=== PATIENT | female | born 1965 | race Caucasian/White ===

== ENCOUNTER 2017-09-14 21:12 | Inpatient (IN) | payer OTHER ==
[~2017-09-14] VITALS: Ht 157.5 cm; Wt 167.8 kg
[2017-09-14 22:23] LABS: BASOPHIL % 0.7 % (0-2); PLATELET COUNT 210 x10^3mcL (130-400); RED CELL DISTRIBUTION WIDTH 13.8 % (11.5-14.5)
[2017-09-14 22:31] LABS: CALCIUM 9.6 mg/dL (8.5-10.1); CHLORIDE SERUM 104 mmol/L (98-107); GFR1 > 60 mL/min; GLUCOSE SERUM 135 mg/dL (74-106); POTASSIUM SERUM 3.8 mmol/L (3.5-5.1); SODIUM SERUM 142 mmol/L (136-145)
[2017-09-14 22:35] LABS: ALBUMIN 3.7 g/dL (3.4-5.0); ALKALINE PHOSPHATASE 155 U/L (46-116); ALT/SGPT 175 U/L (14-59); AST/SGOT 199 U/L (15-37); BILIRUBIN TOTAL 0.75 mg/dL (0.20-1.00); TOTAL PROTEIN, SERUM 7.7 g/dL (6.4-8.2)
[2017-09-15] MEDS ORDERED: NOR10T (00:50)
[2017-09-15] MEDS ORDERED: ENALAPRIL MALEA20 MG PO (00:50)
[2017-09-15] MEDS ORDERED: HYDROCHLOROTHIA50 MG PO (00:50)
[2017-09-15 01:05] LABS: T3 TOTAL 1.77 ng/mL
[2017-09-15 01:06] LABS: MAGNESIUM 2.1 mg/dL (1.8-2.4); PHOSPHOROUS 4.6 mg/dL (2.5-4.9)
[2017-09-15 01:14] LABS: CHOLESTEROL/HDL RATIO 2.5
[2017-09-15 01:26] LABS: FREE T4 1.33 ng/dL (0.76-1.46); FREE THYROXINE INDEX 3.7 ug/dL (1.4-4.5); T4(THYROXINE) 12.4 ug/dL (4.7-13.3)
[2017-09-15 03:55] VITALS: BP 176/95
[2017-09-15 04:13] VITALS: BP 152/88
[2017-09-15 08:39] VITALS: BP 158/86
[2017-09-15 13:39] VITALS: BP 146/93
[2017-09-15 17:23] VITALS: BP 198/123
[2017-09-15 21:18] VITALS: BP 150/94
[2017-09-16 00:17] LABS: microscopic required? YES; urine erythrocyte 1+ (NEGATIVE)
[2017-09-16 00:39] LABS: AMPHETAMINE QUAL UR NONE DETECTED (See below)
[2017-09-16 05:41] VITALS: BP 163/85
[2017-09-16 06:38] LABS: BASOPHIL % 0.2 % (0-2); PLATELET COUNT 203 x10^3mcL (130-400); RED CELL DISTRIBUTION WIDTH 13.6 % (11.5-14.5)
[2017-09-16 06:51] LABS: CALCIUM 9.2 mg/dL (8.5-10.1); CARBON DIOXIDE 30.1 mmol/L (21-32); CHLORIDE SERUM 103 mmol/L (98-107); CREATININE SERUM 0.8 mg/dL (0.6-1.0); GFR1 > 60 mL/min; GLUCOSE SERUM 108 mg/dL (74-106); MAGNESIUM 2.4 mg/dL (1.8-2.4); POTASSIUM SERUM 4.1 mmol/L (3.5-5.1); SODIUM SERUM 140 mmol/L (136-145)
[2017-09-16 09:01] VITALS: BP 137/72
[2017-09-16 12:21] VITALS: BP 144/89
[2017-09-16 16:10] VITALS: BP 127/67
[2017-09-16 16:50] VITALS: Ht 157.5 cm; Wt 167.8 kg
[2017-09-16] MEDS ORDERED: MOT800 PO (16:57)
[2017-09-16] MEDS ORDERED: CYCLOBENZAPRINE5 MG PO (16:58)
[2017-09-16] MEDS ORDERED: LEVAQUIN250 M1 PO (17:13)
[2017-09-16 17:28] VITALS: BP 127/67
== END 2017-09-16 19:09 | disposition home or self-care (01) | DRG 347 ==
LOC: ED 21:12 → DU 09-15 00:21
PROVIDERS: Emergency Medicine; Family Medicine
DX: M54.30 Sciatica, unspecified side (principal); E66.01 Morbid (severe) obesity due to excess calories; N39.0 Urinary tract infection, site not specified; R74.0 Nonspecific elevation of levels of transaminase and lactic acid dehydrogenase [LDH]; I10 Essential (primary) hypertension; T39.1X5A Adverse effect of 4-Aminophenol derivatives, initial encounter; T39.315A Adverse effect of propionic acid derivatives, initial encounter; Y92.89 Other specified places as the place of occurrence of the external cause; Z91.14 Patient's other noncompliance with medication regimen; Z68.44 Body mass index [BMI] 60.0-69.9, adult
CPT/HCPCS: 83880; 84439; 94150; 97110-GP; G0480; J1100; J1644; J2270; J2405; J3010; J3475; J3490; J7030; Q0092